=== PATIENT | male | born 1955 | race Caucasian/White ===

== ENCOUNTER 2022-03-05 12:11 | Emergency (ER) | payer MEDICARE, OTHER | END 2022-03-05 17:00 | disposition home or self-care (01) | LOC: JD.ED 12:11 | DX: U07.1 COVID-19 (principal); Z91.041 Radiographic dye allergy status; Z88.0 Allergy status to penicillin; Z79.899 Other long term (current) drug therapy; Z79.82 Long term (current) use of aspirin | CPT/HCPCS: 99282 ==